=== PATIENT | female | born 1960 | race Caucasian/White ===

== ENCOUNTER 2020-06-06 07:17 | Day surgery (SDC) | payer MEDICARE, MEDICAID ==
[2020-06-04 11:12] VITALS: BMI 23.0
[2020-06-06] MEDS ORDERED: Fentanyl 100 MCG/2 ML VIAL ONE (07:38)
--- NOTE | 2020-06-06 11:38 | OP ---
DATE OF PROCEDURE: 06/06/2020 PROCEDURE PERFORMED: Esophagogastroduodenoscopy with biopsy. INDICATIONS FOR PROCEDURE: Prior episode of hematemesis. DESCRIPTION OF PROCEDURE: After the risks and benefits of the procedure were explained to the patient's surrogate (the patient's caregiver) including risks of bleeding, infection, perforation, reactions to anesthesia, aspiration, and/or pain, informed consent was obtained. The patient was then taken to the endoscopy suite where deep sedation was administered via propofol and anesthesia support. Once adequate sedation was achieved, the standard gastroscope was introduced into the mouth with intubation of the esophagus, stomach, and the proximal small intestines with the findings listed below. The patient tolerated the procedure well with no immediate perioperative complications. On conclusion of the procedure, all equipment was removed from the patient and she was transferred to Day Stay in satisfactory condition. FINDINGS: Esophagus: Normal-appearing mucosa was seen in both the proximal and mid esophagus; however, in the distal esophagus just proximal to the gastroesophageal junction, 2 small tongues of salmon-colored mucosa were seen extending proximally from the GE junction. These tongues measured approximately 1 cm in maximum length. Biopsies were taken for evaluation of possible Branch esophagus. Otherwise, there was no evidence of erosions, ulcerations, mass lesions, or active/recent bleeding. Stomach: Normal-appearing mucosa was seen in the gastric cardia, fundus, body, greater curvature, antrum, and incisura. There was no evidence of erosions, ulcerations, mass lesions, or active/recent bleeding. Duodenum: Normal-appearing mucosa was seen in both the duodenal bulb and second portion of the duodenum. There was no evidence of erosions, ulcerations, mass lesions, or active/recent bleeding. IMPRESSION: 1. 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 2. Otherwise normal upper endoscopy. RECOMMENDATIONS: 1. We would follow up on the biopsy results, and if intestinal metaplasia/Branch esophagus is present, would recommend a repeat upper endoscopy in 3 to 5 years. 2. Would decrease the pantoprazole to 20 mg daily. 3. Continue to trend her hemoglobin and hematocrit as part of routine labs and evidence of possible bleeding. 4. Would avoid any NSAIDs if at all possible. 5. Would have the patient follow up in the GI clinic as needed. Job ID: [id number]
[2020-06-06] MEDS ORDERED: PROPOFOL 200 MG/20 ML VIAL ONE (11:47)
== END 2020-06-06 10:10 | disposition home or self-care (01) ==
LOC: SDC 07:17
PROVIDERS: ATTEND Internal Medicine
PROC: 0DB58ZX Excision of Esophagus, Via Natural or Artificial Opening Endoscopic, Diagnostic (ICD-10-PCS; principal; 2020-06-06)
DX: K92.0 Hematemesis (principal); K21.0 Gastro-esophageal reflux disease with esophagitis; E78.5 Hyperlipidemia, unspecified; F73 Profound intellectual disabilities; Z79.899 Other long term (current) drug therapy; Z88.2 Allergy status to sulfonamides; Z88.8 Allergy status to other drugs, medicaments and biological substances
CPT/HCPCS: 88305; 88312; 88313; J2704; J3010

== ENCOUNTER 2024-06-29 06:32 | Day surgery (SDC) | payer MEDICARE, MEDICAID ==
[2024-06-28 09:45] VITALS: BMI 22.4
[2024-06-29] MEDS ORDERED: PROPOFOL 40 ML ONE (07:06)
[2024-06-29] MEDS ORDERED: Lidocaine 1% PF 5 ML VIAL ONE (08:51)
== END 2024-06-29 10:10 | disposition home or self-care (01) ==
LOC: SDC 06:32
PROVIDERS: ATTEND Internal Medicine
PROC: 0DBK8ZZ Excision of Ascending Colon, Via Natural or Artificial Opening Endoscopic (ICD-10-PCS; principal; 2024-06-29)
DX: Z12.11 Encounter for screening for malignant neoplasm of colon (principal); D12.2 Benign neoplasm of ascending colon; K64.4 Residual hemorrhoidal skin tags; K21.9 Gastro-esophageal reflux disease without esophagitis; H91.93 Unspecified hearing loss, bilateral; E78.5 Hyperlipidemia, unspecified; Z98.890 Other specified postprocedural states; Z79.890 Hormone replacement therapy; Z88.2 Allergy status to sulfonamides; Z88.8 Allergy status to other drugs, medicaments and biological substances
CPT/HCPCS: 45385; J2704; 88305